=== PATIENT | male | born 1985 | race African-American/Black ===

== ENCOUNTER 2021-10-08 10:27 | Emergency (ER) | payer SELFPAY ==
[2021-10-08 10:28] VITALS: BP 100/65; PULSE 89; RESP 16; TEMP 36.1; O2SAT 100; BMI 19.2
--- NOTE | 2021-10-08 10:41 | EDS_ITS ---
HPI History of Present Illness Chief Complaint: Lower Extremity Injury Detail of Chief Complaint: Left knee pain Informant: patient Onset/Context/Timing Onset: Yesterday Current Severity: Mild Maximum Severity: Moderate Narrative Narrative: Patient presents secondary left knee pain with difficulty ambulating. He reports spraining the ligaments in his knee several years ago. He never required injections or surgery. Last evening he was moving furniture in his home but did not feel any pain. After lying on the sofa and doing some work on his computer he had left knee pain with difficulty ambulating. He states he is able to ambulate with pain this morning but feels like his knee is giving out on him 3 times. He has not taken anything for pain. [facility] Medical History (Updated 10/08/21 @ 11:[address] Francisca Maya MD) Eczema Home Medications naproxen [Naprosyn] 500 mg PO BID PRN #20 tab 10/08/21 [Rx Last Taken Unknown] Allergy/AdvReac Type Severity Reaction Status Date / Time No Known Allergies Allergy Verified 10/08/21 10:27 Social History Smoking Status: Never smoker ROS ROS ED Constitutional Constitutional ED: Denies chills or fever(s) Eyes Eyes: Denies change in vision ENT ENT ED: Denies sore throat Cardiovascular Cardiovascular: Denies chest pain Respiratory/Chest Respiratory/Chest: Denies cough or dyspnea Gastrointestinal Gastrointestinal: Denies abdominal pain, nausea or vomiting Musculoskeletal Musculoskeletal: Reports arthralgias; Denies back pain Integumentary Denies rash Neurologic Neurologic: Denies headache(s) or paresthesias Allergic/Immunologic Allergic/Immunologic ED: Denies urticaria EXAM Physical Exam Const Vital Signs: 10/08/21 10:28 Temperature 97.0 F L Temperature Source Temporal Pulse Rate 89 Respiratory Rate 16 Blood Pressure 100/65 Blood Pressure Mean 76 Pulse Ox 100 Oxygen Delivery Method Room Air Positive well nourished and well developed General Appearance ED: well developed HEENT normocephalic and atraumatic Eyes PERRL Neck full ROM and supple Chest Wall inspection of chest normal and palpation of chest normal Resp normal respiratory effort and clear to auscultation bilaterally Cardio regular rate and regular rhythm GI non-tender Palpation: soft Extremity Extremity Narrative: Tenderness location along the infrapatellar tendon of the left knee. No significant edema. Ligaments head on testing. No joint line tenderness. Strong distal pulses. Neuro oriented x3 Sensorium / Orientation: alert Skin Lesions: no lesions Rashes: no rashes MDM MDM MDM Narrative Medical decision making narrative: Patient given Naprosyn and left knee x-rays obtained. Radiography Diagnostic Testing: Clinical Impression(s) from Imaging Studies Knee X-Ray 10/08/21 10:58 IMPRESSION: Small superior patellar spur. No other abnormality present. Electronically Signed: Vinicio Chang MD at 11:23 EDT , Treatment and Re-Evaluation Narrative: Left knee x-ray per my interpretation reveals no acute findings. Radiology interpretation is reviewed. Wesly wrap is applied to the left knee and patient be given prescription for naproxen. Discharge Plan Triage Chief Complaint: Lower Extremity Injury ED Provider: Francisca Maya Dx/Rx/DC Orders Clinical Impression: Sprain of knee Instructions: ED Knee Sprain Prescriptions: New naproxen [Naprosyn] 500 mg tablet 500 mg PO BID PRN (Reason: pain) Qty: 20 RF: 0 Primary Care Provider: Care Physician,No Primary Referrals: Aileen Gomez MD [STAFF PHYSICIAN] - As Needed Care Physician,No Primary [Primary Care Provider] - Disposition Disposition: Home, Self Care
[2021-10-08] MEDS: Naproxen 500 MG Tablet PO (10:43)
--- NOTE | 2021-10-08 10:58 | RAD_ITS ---
STUDY: X-RAY - LEFT KNEE REASON FOR EXAM: Male, 36 years old. Pain. TECHNIQUE: Floor view(s) of the knee. COMPARISON: None. FINDINGS: Normal visualized distal femur. Normal visualized proximal tibia and fibula. Normal proximal tibiofibular articulation. Small superior patellar spur. Normal medial femorotibial compartment. Normal lateral femorotibial compartment. Normal patellofemoral articulation. The soft tissue structures are unremarkable. RAD/Knee 4 or More Views IMPRESSION: Small superior patellar spur. No other abnormality present. Electronically Signed: Vinicio Chang MD at 11:23 EDT ,
== END 2021-10-08 11:46 | disposition home or self-care (01) ==
PROVIDERS: Emergency Provider Emergency Medicine; Visit Provider Emergency Medicine
DX: S83.92XA Sprain of unspecified site of left knee, initial encounter (principal); X58.XXXA Exposure to other specified factors, initial encounter; Y93.9 Activity, unspecified; Y92.9 Unspecified place or not applicable
CPT/HCPCS: 73564; 99283

== ENCOUNTER 2021-12-22 03:59 | Emergency (ER) | payer SELFPAY ==
[2021-12-22 03:59] VITALS: BP 117/80; PULSE 60; RESP 16; TEMP 36.2; O2SAT 99; BMI 18.8
--- NOTE | 2021-12-22 05:20 | EX.ED.GUMALE ---
HPI History of Present Illness Chief Complaint: Male Pain/Injury Informant: patient Pain Onset: Days (1-2) Context: Gradual Onset Timing: Continuous Current Severity: Mild Maximum Severity: Moderate Worsened by: sitting on toilet Relieved by: wearing supportive underwear Penile Discharge Genital Discharge Amount: None Related History Sexually: Active and Single Partner (spouse, monogamous) STD: No Narrative Narrative: Patient with gradual onset of left scrotal discomfort and he has felt a bump there where the pain is. He states when his scrotum is hanging while sitting on the toilet it hurts more. He has noticed that when he has boxer briefs on it hurts less. This past day he was lounging around and just pajama pants, and he noticed it was more sore. He denies any fevers or chills, nausea or vomiting, dysuria or hematuria. He is sexually active on occasion with his and no one else. Neither one of them have STDs. He denies any recent injury to his scrotum or genitals. [facility] Medical History Eczema Home Medications doxycycline monohydrate 100 mg capsule 100 mg PO BID #20 CAPSULES 12/22/21 [Rx Last Taken Unknown] Allergy/AdvReac Type Severity Reaction Status Date / Time No Known Allergies Allergy Verified 12/22/21 04:02 Social History Smoking Status: Current every day smoker tobacco type: cigarettes ROS ROS ED Constitutional Constitutional ED: Denies chills or fever(s) Cardiovascular Cardiovascular: Denies chest pain or palpitations Respiratory/Chest Respiratory/Chest: Denies cough or dyspnea Gastrointestinal Gastrointestinal: Denies abdominal pain, nausea or vomiting Genitourinary Genitourinary ED: Reports as per HPI and scrotal pain; Denies dysuria, flank pain, hematuria, penile discharge, scrotal swelling or urinary frequency Musculoskeletal Musculoskeletal: Denies back pain or neck pain Integumentary Denies abscess or rash Neurologic Neurologic: Denies headache(s), paresthesias or weakness EXAM Physical Exam Const Vital Signs: 12/22/21 03:59 Temperature 97.1 F L Temperature Source Temporal Pulse Rate 60 Respiratory Rate 16 Blood Pressure 117/80 Blood Pressure Mean 92 Pulse Ox 99 Oxygen Delivery Method Room Air Positive well nourished and well developed General Appearance ED: well developed and NAD HEENT Reports moist mucous membranes atraumatic Eyes PERRL and EOMs intact bilaterally Neck supple Neck Narrative: FROM GI non-tender and non-distended Auscultation: normoactive bowel sounds Palpation: soft no CVA tenderness Narrative: Normal penis. Normal testicles nontender. No palpable abnormal masses in scrotum, tender in the left epididymis. No blue dot sign. No scrotal swelling or erythema. No tenderness into spermatic cord which feels normal. Extremity normal to inspection Neuro oriented x3, CN's II-XII intact bilaterally, no focal motor deficits and gait normal Psych mental status grossly normal Skin Lesions: no lesions Rashes: no rashes MDM MDM MDM Narrative Medical decision making narrative: Patient presents around 4:30 AM, no ultrasound available, clinically I think this most likely is epididymitis. I am treating him empirically for what is most commonly E. coli, he is low risk for GC or chlamydia etiologies, and we discussed reasons to return or follow-up for further evaluation. He is comfortable with that plan, prescribed doxycycline. Discharge Plan Triage Chief Complaint: Male Pain/Injury ED Provider: Shola Jimenez Dx/Rx/DC Orders Clinical Impression: Epididymitis, left Instructions: ED Epididymitis Prescriptions: New doxycycline monohydrate 100 MG capsule 100 mg PO BID Qty: 20 0RF Primary Care Provider: Care Physician,No Primary Referrals: Eusebio Llamas MD [STAFF PHYSICIAN] - 1 Week if not improving Care Physician,No Primary [Primary Care Provider] - Disposition Disposition: Home, Self Care
[2021-12-22] MEDS: Doxycycline 100 MG CAPSULE PO (05:31)
[2021-12-22] MEDS: Ibuprofen 600 MG Tablet PO (05:31)
== END 2021-12-22 05:41 | disposition home or self-care (01) ==
PROVIDERS: Emergency Provider Emergency Medicine; Visit Provider Emergency Medicine
DX: N45.1 Epididymitis (principal); F17.210 Nicotine dependence, cigarettes, uncomplicated
CPT/HCPCS: 99283

== ENCOUNTER 2023-11-27 00:38 | Emergency (ER) | payer OTHER, SELFPAY ==
[2023-11-27 00:39] VITALS: BP 114/78; PULSE 86; RESP 18; TEMP 36.4; O2SAT 98; BMI 19.0
--- NOTE | 2023-11-27 00:55 | RAD_ITS ---
EXAM: XR CERVICAL SPINE, 4 OR 5 VIEWS CLINICAL INDICATION: pain, weak hospital admitting clerk bilat TECHNIQUE: Frontal, lateral and bilateral oblique views of the cervical spine. COMPARISON: No relevant prior studies available. FINDINGS: VERTEBRAE: Slight reversal of the normal cervical lordosis. Slight degenerative posterior subluxation of C6 on C7. No compression fracture or other acute fracture identified. No facet dislocation. The odontoid is intact. DISC SPACES: Minimal degenerative disc space narrowing at the C5/6 and C6/7 levels, with small marginal osteophytes. Marginal osteophytes also noted about the C4/5 disc space, which is relatively preserved. Oblique views show mild left-sided neural foraminal encroachment at C5/C6 and C6/7 by uncinate hypertrophy. Additional uncinate hypertrophy noted on the right at C6/7, without demonstrated neural foraminal encroachment. SOFT TISSUES: Unremarkable. No prevertebral soft tissue widening. Normal epiglottis. LUNG APICES: The visualized upper ribs are intact. Visualized upper lungs are clear. RAD/Cerv Spine 4 or 5 Views IMPRESSION: Slight reversal of the normal cervical lordosis due to positioning or muscle spasm. Mild lower cervical degenerative disc disease. Electronically Signed: Eddie Pagan MD at 1:54 EDT ,
--- NOTE | 2023-11-27 00:56 | ED.VIS.BACK ---
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 No other weakness in his arms. He states in the mornings when he wakes up his arms feel numb he is not sure where, but goes away quickly and he denies having numbness any other time during the day in his arms or legs. For the past 2 or 3 days, he has also been having pain across his low back nonlateralizing, worse with movement, without radiation into his lower extremities or numbness/weakness there. He denies any bowel or bladder dysfunction. No falls or trauma. 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 [facility] Medical History Eczema Home Medications ?Medication ?Instructions ?Recorded ?Last Taken ?Type naproxen 500 mg tablet 500 mg PO BID PRN #20 tabs 11/27/23 Unknown Rx Allergy/AdvReac Type Severity Reaction Status Date / Time No Known Allergies Allergy Verified 11/27/23 00:43 Social History Smoking Status: Current every day smoker tobacco type: cigarettes ROS ROS ED Constitutional Constitutional ED: Denies chills or fever(s) Gastrointestinal Gastrointestinal: Denies abdominal pain, constipation, fecal incontinence, nausea or vomiting Genitourinary Genitourinary ED: Reports other Details: no urinary retention ; Denies abdominal discomfort or urinary incontinence Musculoskeletal Musculoskeletal: Reports as per HPI, back pain and neck pain Integumentary Denies rash or wounds Neurologic Neurologic: Reports as per HPI, paresthesias RUE and LUE and weakness; Denies headache(s) EXAM Physical Exam Const Vital Signs: 11/27/23 00:39 Temperature 97.6 F L Temperature Source Oral Pulse Rate 86 Respiratory Rate 18 Blood Pressure 114/78 Blood Pressure Mean 90 Pulse Ox 98 Oxygen Delivery Method Room Air Positive well nourished and well developed General Appearance ED: well developed and NAD HEENT Negative for trauma or tenderness Eyes PERRL and EOMs intact bilaterally Neck full ROM, no lymphadenopathy and supple Neck Narrative: Subjectively tender throughout neck mostly in the base left paraspinal musculature/upper rhomboids area General: tenderness GI normal to inspection, nondistended, normoactive bowel sounds, soft to palpation and non-tender Back/Spine normal to inspection Lumbar Spine / Lower Back: paraspinal muscle tenderness bilateral and straight leg raise negative bilaterally; Negative for ROM limited or lumbar spinal tenderness Extremity normal to inspection, full ROM and no pedal edema Neuro oriented x3 and no sensory deficits noted Neuro Narrative: Equal strength bilateral upper and lower extremities throughout all muscle groups without objective weakness Sensorium / Orientation: alert Motor Exam: strength 5/5 throughout and clonus absent Deep Tendon Reflexes: Rt Triceps (C7): 1+, Lt Triceps (C7): 1+, Rt Biceps (C5, C6): 1+, Lt Biceps (C5, C6): 1+, Rt Brachioradialis (C6): 1+, Lt Brachioradialis (C6): 1+, Rt Patellar (L4): 1+, Lt Patellar (L4): 1+, Rt Ankle (S1): 1+ and Lt Ankle (S1): 1+ Deep Tendon Reflexes Back: Rt Patellar (L4): 1+, Lt Patellar (L4): 1+, Rt Ankle (S1): 1+ and Lt Ankle (S1): 1+ Psych mental status grossly normal and thought process normal Skin no rashes or lesions noted and no wounds MDM MDM MDM Narrative Medical decision making narrative: Patient states he is concerned he may have pinched nerves. I advised him he has no objective evidence of that right now, I am not able to rule out in or out with testing here in the emergency department especially at 1 AM but I am more than happy to do some screening x-rays of his cervical spine to screen for decreased disc height or occult vertebral fracture which I am at a low suspicion for, and give him some anti-inflammatory medications, he has not tried any medicines for any of this yet. With regards to the low back I think that this is all probably muscular strain/overuse and he is in agreement that could have caused this. 5 view x-ray series of the cervical spine on my interpretation shows no acute abnormality, according to radiology it does show some degenerative disc spaces in the lower cervical spine, incidentally where he is having the pain. As above prescribing naproxen and encouraging outpatient follow-up he states he has a doctor just cannot remember who it is. Radiography Diagnostic Testing: Clinical Impression(s) from Imaging Studies Cervical Spine X-Ray 11/27/23 00:55 IMPRESSION: Slight reversal of the normal cervical lordosis due to positioning or muscle spasm. Mild lower cervical degenerative disc disease. Electronically Signed: Eddie Pagan MD at 1:54 EDT , Discharge Plan Triage Chief Complaint: Back ED Provider: Shola Jimenez Dx/Rx/DC Orders Clinical Impression: Acute neck pain, Acute lumbosacral myofascial strain Instructions: ED Back Sprain/Strain, ED Neck Pain Prescriptions: New naproxen 500 mg tablet 500 mg PO BID PRN Qty: 20 0RF Primary Care Provider: Care Physician,No Primary Referrals: Doctor,Your [Non-Staff] - 1-2 Weeks Print Language: [place] Disposition Disposition: Home, Self Care
[2023-11-27] MEDS: Ketorolac 60 MG/2 ML Vial IM (01:01)
[2023-11-27 03:08] VITALS: BP 135/73; PULSE 60; RESP 18; TEMP 36.6; O2SAT 100
== END 2023-11-27 03:10 | disposition home or self-care (01) ==
PROVIDERS: Emergency Provider Emergency Medicine; Visit Provider Emergency Medicine
DX: S39.012A Strain of muscle, fascia and tendon of lower back, initial encounter (principal); F17.210 Nicotine dependence, cigarettes, uncomplicated; M54.2 Cervicalgia
CPT/HCPCS: 72050; 96372; 99282

== ENCOUNTER → 2024-04-21 | Outpatient (CLI) | payer OTHER, SELFPAY ==
[2024-04-21 17:59] LABS: Absolute Lymphocyte Count 2.82 X10^3/uL (0.83-4.51); Absolute Neutrophil Count 3.9 X10^3/uL (2.0-7.7); Basophil# 0.07 X10^3/uL; Basophil% 0.9 % (0-1); Eosinophil# 0.32 X10^3/uL; Eosinophils% 4.2 % (0-5); Lymphocyte # 2.82 X10^3/ul (0.83-4.51); Lymphocyte % 36.7 % (19-41); Mean Corp Hgb Conc 33.3 g/dL (32-36); Mean Corpuscular Hgb 29.8 pg (27.0-32.0); Mean Corpuscular Volume 89.4 fL (80-94); Mean Platelet Vol. 8.7 fl (6.2-12.0); Monocyte# 0.55 X10^3/uL; Monocyte% 7.2 % (0-10); NRBC Flagged by Analyzer 0 % (0-5); Neutrophil # 3.91 X10^3/uL (2.7-7.7); Neutrophil % 50.9 % (47-70); Platelet Count 238 K/mm3 (150-450); RBC Distribution Width CV 13.2 % (11.6-14.6); RBC Distribution Width SD 43.8 fl (35.1-43.9); Red Blood Count 4.36 M/mm3 (4.6-6.2); White Blood Count 7.7 K/mm3 (4.4-11.0)
[2024-04-21 18:04] LABS: ALB/GLOB Ratio 1.2 RATIO (0.9-2.4); AST(SGOT) 21 U/L (15-37); Alanine Aminotransfer ALT/SGPT 29 U/L (16-61); Albumin, Serum 3.9 g/dL (3.2-5.0); Alkaline Phosphatase 109 U/L (45-117); Anion Gap 3 (5-15); BUN 7 mg/dL (7-18); BUN/Creat Ratio 8.1 RATIO (10-20); Calcium,Total 9.2 mg/dL (8.5-10.1); Chloride 107 mmol/L (98-107); Cholesterol 135 mg/dL (200); Creatinine, Serum 0.86 mg/dL (0.70-1.30); EST Glomerular Filtration Rate 105 mL/min (>60); Est Glom Filt Rate - Afr Amer 127 mL/min (>60); Globulin 3.2 g/dL (2.2-4.2); Glucose 87 mg/dL (74-106); High Density Lipoprotein 60 mg/dL; Potassium 4.4 mmol/L (3.5-5.1); Protein, Total 7.1 g/dL (6.4-8.2); Sodium Level 139 mmol/L (136-145); Triglycerides 46 mg/dL; Very Low Density Lipoprotein 9 mg/dL (5-40)
[2024-04-21 18:57] LABS: Hepatitis B Surface Antibody Reactive; Hepatitis B Surface Antigen Non-Reactive (Nonreactive); Hepatitis C Antibody Non-Reactive (Nonreactive)
[2024-04-23 16:08] LABS: Hepatitis B Core Ab Total Negative (Negative); QNTFERON TB Mitogen Value > 10.00 IU/mL (.); QNTFERON TB Nil Value 0.25 IU/mL (.); QNTFERON TB1+ Ag Value 0.26 IU/mL (.); QNTFERON TB2+ Ag Value 0.21 IU/mL (.); QNTIFERON TB Positive Criteria Negative (Negative)
== END | disposition home or self-care (01) ==
PROVIDERS: Referring Provider Dermatology; Visit Provider Dermatology
DX: L20.89 Other atopic dermatitis (principal); Z79.622 Long term (current) use of Janus kinase inhibitor
CPT/HCPCS: 36415; 80053; 80061; 85025; 86480; 86704; 86706; 86803; 87340